=== PATIENT | male | born 1975 | race Caucasian/White ===

== ENCOUNTER → 2020-03-05 16:18 | Outpatient (BNVA) | payer BC, SELFPAY | PROVIDERS: Visit Provider Electrodiagnostic Medicine | DX: Z20.828 Contact with and (suspected) exposure to other viral communicable diseases (principal) | CPT/HCPCS: 87635 ==

== ENCOUNTER 2020-11-21 20:00 | Outpatient (CLI) | payer OTHER, SELFPAY | END 2020-11-21 20:01 | disposition home or self-care (01) | LOC: SLEEP 11-22 09:14 | PROVIDERS: Visit Provider Specialist | DX: G47.10 Hypersomnia, unspecified (principal); R06.83 Snoring; R53.83 Other fatigue | CPT/HCPCS: 95810 ==